=== PATIENT | male | born 1935 | race Asian ===

== ENCOUNTER 2017-11-15 01:00 | Inpatient (IN) | payer OTHER, MEDICARE ==
[2017-11-15] MEDS: ALBUTEROL 0.083% (NEB) 2.5 MG/3 ML AMP INH (01:30)
[2017-11-15] MEDS: IPRATROPIUM (NEB) 0.5 MG/2.5 ML AMP INH (01:31)
[2017-11-15 01:40] LABS: AADO2 Venous 54.3 mmHg; MODE ROOM AIR; MetHgb Venous 0.4 %; Site Left Radial; Venous COHb 0.4 %; Venous Fraction OxyHgb 89.9 %; Venous Oxygen Sat 90.6 mmHG (55.0-75.0); Venous Total Hemglobin 6.6 g/dl
[2017-11-15 02:31] LABS: ADD MAN DIFF? NO
[2017-11-15 02:34] LABS: WHITE BLOOD COUNT 9.5 10^3/ul (4.8-10.8)
[2017-11-15 02:34] LABS: ABNORMAL IP MESSAGE 1; EOSINOPHILS # 0.1 10^3/ul (0.0-0.5); EOSINOPHILS % 0.5 % (0.0-7.0); HEMATOCRIT 13.5 % (42.0-52.0); LYMPHOCYTES # 1.3 10^3/ul (0.8-2.9); LYMPHOCYTES % 13.3 % (15.0-51.0); MEAN CORPUSCULAR HEMOGLOBIN 31.8 pg (29.0-33.0); MEAN CORPUSCULAR HGB CONC 31.1 g/dl (32.0-37.0); MEAN CORPUSCULAR VOLUME 102.3 fl (82.0-101.0); MEAN PLATELET VOLUME 9.3 fl (7.4-10.4); MONOCYTE # 0.9 10^3/ul (0.3-0.9); MONOCYTES % 9.1 % (0.0-11.0); NEUTROPHIL # 7.2 10^3/ul (1.6-7.5); NEUTROPHILS % 76.4 % (39.0-77.0); NUCLEATED RED BLOOD CELLS # 0.1 10^3/ul (0.0-0.0); NUCLEATED RED BLOOD CELLS% 0.7 /100WBC (0.0-0.0); PLATELET COUNT 214 10^3/UL (140-415); POSITIVE DIFF @See below; RED BLOOD COUNT 1.32 10^6/ul (4.70-6.10); RED CELL DISTRIBUTION WIDTH 17.1 % (11.5-14.5)
[2017-11-15 02:43] LABS: HEMOGLOBIN 4.2 g/dl (14.0-18.0)
[2017-11-15 02:51] LABS: ANION GAP 15 (8-16); BLOOD UREA NITROGEN 50 mg/dl (7-20); CALCIUM 8.5 mg/dl (8.4-10.2); CARBON DIOXIDE 24 mmol/L (21-31); CHLORIDE 102 mmol/L (97-110); CREATININE 3.16 mg/dl (0.61-1.24); GLUCOSE 127 mg/dl (70-220); SODIUM 136 mmol/L (135-144)
[2017-11-15 02:55] LABS: INR 1.15; PROTIME 14.9 Sec (11.9-14.9); PT RATIO 1.2
[2017-11-15 02:56] LABS: PARTIAL THROMBOPLASTIN TIME 37.6 Sec (25.0-35.0)
[2017-11-15 03:02] LABS: B-TYPE NATRIURETIC PEPTIDE 12400 PG/ML (0-450); TROPONIN-I 0.011 ng/ml (0.000-0.120)
[2017-11-15] MEDS: ACETAMINOPHEN 500 MG TAB PO (03:07)
[2017-11-15] MEDS: CEFEPIME 2GM/50 ML (PMX) 50 ML IVPB (03:11)
[2017-11-15] MEDS: SOD CHLORIDE 0.9% 500 ML IV (04:00)
[2017-11-15] MEDS ORDERED: ALBUTEROL/IPRATROPIUM (NEB) 3 ML AMP NEB (04:30)
[2017-11-15] MEDS ORDERED: ACETAMINOPHEN 650MG/20.3ML CUP PO (04:30)
[2017-11-15] MEDS: VANCOMYCIN 1 GM (PMX) 250 ML IVPB (04:41)
[2017-11-15] MEDS: morphine 4 MG/ML VIAL IV (05:41)
[2017-11-15] MEDS: ONDANSETRON 4 MG INJ IV (05:41)
[2017-11-15] MEDS: PANTOPRAZOLE 40 MG INJ IV ×2 (05:43→18:32)
[2017-11-15] MEDS: SOD CHLORIDE 0.9% 250 ML IV (08:43)
[2017-11-15 08:57] LABS: HAAIG REFLEX REFLEX FILED
[2017-11-15 09:41] LABS: HEPATITIS B SURFACE ANTIGEN NEGATIVE (NEGATIVE)
[2017-11-15 09:59] LABS: HEPATITIS B CORE ANTIBODY NEGATIVE (NEGATIVE); HEPATITIS C VIRAL ANTIBODY NEGATIVE (NEGATIVE)
[2017-11-15] MEDS ORDERED: ALBUMIN HUMAN 25% 100 ML (12:48)
[2017-11-15] MEDS: ALBUMIN HUMAN 25% 100 ML IV (12:57)
[2017-11-15 13:35] LABS: ADD MAN DIFF? NO
[2017-11-15] MEDS: HEPARIN 1000 UNITS/ML 10 ML INJ CATHETER (13:36)
[2017-11-15 13:37] LABS: WHITE BLOOD COUNT 8.6 10^3/ul (4.8-10.8)
[2017-11-15 13:37] LABS: BASOPHILS % 0.4 % (0.0-2.0); EOSINOPHILS % 0.2 % (0.0-7.0); HEMATOCRIT 26.8 % (42.0-52.0); HEMOGLOBIN 8.7 g/dl (14.0-18.0); LYMPHOCYTES % 11.3 % (15.0-51.0); MEAN CORPUSCULAR HEMOGLOBIN 28.5 pg (29.0-33.0); MEAN CORPUSCULAR HGB CONC 32.5 g/dl (32.0-37.0); MEAN CORPUSCULAR VOLUME 87.9 fl (82.0-101.0); MEAN PLATELET VOLUME 9.2 fl (7.4-10.4); MONOCYTES % 11.7 % (0.0-11.0); NEUTROPHIL # 6.5 10^3/ul (1.6-7.5); NEUTROPHILS % 75.5 % (39.0-77.0); NUCLEATED RED BLOOD CELLS # 0.1 10^3/ul (0.0-0.0); NUCLEATED RED BLOOD CELLS% 1.4 /100WBC (0.0-0.0); POSITIVE DIFF @See below; RED BLOOD COUNT 3.05 10^6/ul (4.70-6.10); RED CELL DISTRIBUTION WIDTH 17.5 % (11.5-14.5)
[2017-11-15 13:47] LABS: PLATELET COUNT 114 10^3/UL (140-415)
[2017-11-15 13:56] LABS: HEMOGLOBIN A1C 5.8 % (0-5.9)
[2017-11-15] MEDS: morphine 2 MG INJ IV (14:29)
[2017-11-15] MEDS ORDERED: PROPOFOL 100 ML (16:20)
[2017-11-15] MEDS ORDERED: NORepinephrine 8MG/250 ML (PMX 250 ML (16:34)
[2017-11-15] MEDS: NORepinephrine 8MG/250 ML (PMX 250 ML IV (16:48)
[2017-11-15] MEDS: PROPOFOL 100 ML IV (16:48)
[2017-11-15 17:55] LABS: AADO2 Arterial 206.4 mmHg (7.0-24.0); Arterial Base Excess 2.7 mmol/L (-3.0-3); Arterial Blood Gas Oxygen Sat 99.4 mmHG (95.0-100.0); Arterial COHb 0 % (0.0-3.0); Arterial Fraction of Oxyhgb 98.9 % (93.0-99.0); Arterial HCO3 25.6 mmol/L (22.0-26.0); Arterial MetHb 0.5 % (0.0-1.5); Arterial Total Hemglobin 8.3 g/dl (12.0-18.0); Arterial pCO2 32.7 mmhg (35-45); MODE VENT - AC; Site LB
[2017-11-15 22:45] LABS: ADD MAN DIFF? NO
[2017-11-15 22:46] LABS: BASOPHIL # 0.1 10^3/ul (0.0-0.1); BASOPHILS % 0.4 % (0.0-2.0); EOSINOPHILS # 0.1 10^3/ul (0.0-0.5); EOSINOPHILS % 0.7 % (0.0-7.0); HEMATOCRIT 21.7 % (42.0-52.0); HEMOGLOBIN 7.3 g/dl (14.0-18.0); LYMPHOCYTES # 1.5 10^3/ul (0.8-2.9); LYMPHOCYTES % 13.1 % (15.0-51.0); MEAN CORPUSCULAR HEMOGLOBIN 29.9 pg (29.0-33.0); MEAN CORPUSCULAR HGB CONC 33.6 g/dl (32.0-37.0); MEAN CORPUSCULAR VOLUME 88.9 fl (82.0-101.0); MEAN PLATELET VOLUME 9.4 fl (7.4-10.4); MONOCYTE # 1.5 10^3/ul (0.3-0.9); MONOCYTES % 12.5 % (0.0-11.0); NEUTROPHIL # 8.5 10^3/ul (1.6-7.5); NEUTROPHILS % 72.6 % (39.0-77.0); NUCLEATED RED BLOOD CELLS # 0.4 10^3/ul (0.0-0.0); NUCLEATED RED BLOOD CELLS% 3.3 /100WBC (0.0-0.0); PLATELET COUNT 144 10^3/UL (140-415); RED BLOOD COUNT 2.44 10^6/ul (4.70-6.10); RED CELL DISTRIBUTION WIDTH 18.4 % (11.5-14.5)
[2017-11-15 22:46] LABS: WHITE BLOOD COUNT 11.7 10^3/ul (4.8-10.8)
[2017-11-16] MEDS: PROPOFOL 100 ML IV ×4 (00:17→20:21)
[2017-11-16 03:06] LABS: IMMEDIATE SPIN CROSSMATCH 1 4
[2017-11-16] MEDS: PANTOPRAZOLE 40 MG INJ IV ×2 (05:00→17:25)
[2017-11-16] MEDS: NORepinephrine 8MG/250 ML (PMX 250 ML IV ×2 (05:04→16:43)
[2017-11-16 06:52] LABS: ADD MAN DIFF? NO
[2017-11-16 06:54] LABS: WHITE BLOOD COUNT 11.3 10^3/ul (4.8-10.8)
[2017-11-16 06:54] LABS: BASOPHIL # 0.1 10^3/ul (0.0-0.1); BASOPHILS % 0.7 % (0.0-2.0); EOSINOPHILS # 0.1 10^3/ul (0.0-0.5); EOSINOPHILS % 0.9 % (0.0-7.0); HEMATOCRIT 24.7 % (42.0-52.0); HEMOGLOBIN 8.1 g/dl (14.0-18.0); LYMPHOCYTES # 1.5 10^3/ul (0.8-2.9); LYMPHOCYTES % 13.1 % (15.0-51.0); MEAN CORPUSCULAR HGB CONC 32.8 g/dl (32.0-37.0); MEAN CORPUSCULAR VOLUME 88.5 fl (82.0-101.0); MEAN PLATELET VOLUME 9.1 fl (7.4-10.4); MONOCYTE # 1.5 10^3/ul (0.3-0.9); MONOCYTES % 13.2 % (0.0-11.0); NEUTROPHIL # 8.1 10^3/ul (1.6-7.5); NEUTROPHILS % 71.3 % (39.0-77.0); NUCLEATED RED BLOOD CELLS # 0.6 10^3/ul (0.0-0.0); NUCLEATED RED BLOOD CELLS% 5.7 /100WBC (0.0-0.0); PLATELET COUNT 139 10^3/UL (140-415); RED BLOOD COUNT 2.79 10^6/ul (4.70-6.10); RED CELL DISTRIBUTION WIDTH 18.5 % (11.5-14.5)
[2017-11-16 07:27] LABS: ANION GAP 15 (8-16); BLOOD UREA NITROGEN 62 mg/dl (7-20); CALCIUM 8.2 mg/dl (8.4-10.2); CARBON DIOXIDE 24 mmol/L (21-31); CHLORIDE 103 mmol/L (97-110); CREATININE 2.69 mg/dl (0.61-1.24); GLUCOSE 142 mg/dl (70-220); POTASSIUM 3.6 mmol/L (3.5-5.1); SODIUM 138 mmol/L (135-144)
[2017-11-16] MEDS: LIDOCAINE 1% (MPF) 5 ML VIAL ×2 (10:44)
[2017-11-16 13:50] LABS: Allen Test ACCEPTAB
[2017-11-16] MEDS: ALBUMIN HUMAN 25% 100 ML IV (16:20)
[2017-11-16] MEDS: HEPARIN 1000 UNITS/ML 10 ML INJ CATHETER (18:00)
[2017-11-17] MEDS: NORepinephrine 8MG/250 ML (PMX 250 ML IV ×2 (04:23→20:14)
[2017-11-17] MEDS: PANTOPRAZOLE 40 MG INJ IV (05:03)
[2017-11-17] MEDS: PROPOFOL 100 ML IV (05:03)
[2017-11-17 05:13] LABS: ADD MAN DIFF? NO
[2017-11-17 05:21] LABS: BASOPHIL # 0.1 10^3/ul (0.0-0.1); BASOPHILS % 0.5 % (0.0-2.0); EOSINOPHILS # 0.1 10^3/ul (0.0-0.5); EOSINOPHILS % 0.7 % (0.0-7.0); HEMOGLOBIN 7.9 g/dl (14.0-18.0); LYMPHOCYTES # 1.1 10^3/ul (0.8-2.9); MEAN CORPUSCULAR HEMOGLOBIN 30.2 pg (29.0-33.0); MEAN CORPUSCULAR HGB CONC 32.9 g/dl (32.0-37.0); MEAN CORPUSCULAR VOLUME 91.6 fl (82.0-101.0); MEAN PLATELET VOLUME 9.7 fl (7.4-10.4); MONOCYTE # 1.2 10^3/ul (0.3-0.9); MONOCYTES % 11.4 % (0.0-11.0); NEUTROPHIL # 7.7 10^3/ul (1.6-7.5); NEUTROPHILS % 75.5 % (39.0-77.0); NUCLEATED RED BLOOD CELLS # 0.4 10^3/ul (0.0-0.0); NUCLEATED RED BLOOD CELLS% 3.9 /100WBC (0.0-0.0); PLATELET COUNT 141 10^3/UL (140-415); RED BLOOD COUNT 2.62 10^6/ul (4.70-6.10)
[2017-11-17 05:21] LABS: WHITE BLOOD COUNT 10.2 10^3/ul (4.8-10.8)
[2017-11-17 06:31] LABS: ANION GAP 15 (8-16); BLOOD UREA NITROGEN 61 mg/dl (7-20); CALCIUM 8.5 mg/dl (8.4-10.2); CARBON DIOXIDE 23 mmol/L (21-31); CHLORIDE 104 mmol/L (97-110); CREATININE 3.04 mg/dl (0.61-1.24); GLUCOSE 136 mg/dl (70-220); POTASSIUM 3.6 mmol/L (3.5-5.1); SODIUM 138 mmol/L (135-144)
[2017-11-17] MEDS: morphine 2 MG INJ IV ×2 (12:33→19:53)
[2017-11-17] MEDS: CEPASTAT LOZENGE MT (12:33)
[2017-11-17] MEDS: PANTOPRAZOLE (EC) 40 MG TAB PO (17:06)
[2017-11-17] MEDS: HYDROCODONE/APAP (5/325) TAB PO (20:49)
[2017-11-17] MEDS: ZOLPIDEM 5 MG TAB PO (23:00)
[2017-11-17] MEDS: ONDANSETRON 4 MG INJ IV (23:44)
[2017-11-18 05:04] LABS: ADD MAN DIFF? NO
[2017-11-18 05:08] LABS: ABNORMAL IP MESSAGE 1; BASOPHILS % 0.1 % (0.0-2.0); EOSINOPHILS # 0.1 10^3/ul (0.0-0.5); EOSINOPHILS % 0.6 % (0.0-7.0); HEMATOCRIT 18.6 % (42.0-52.0); LYMPHOCYTES # 0.8 10^3/ul (0.8-2.9); LYMPHOCYTES % 8.9 % (15.0-51.0); MEAN CORPUSCULAR HEMOGLOBIN 30.8 pg (29.0-33.0); MEAN CORPUSCULAR HGB CONC 32.3 g/dl (32.0-37.0); MEAN CORPUSCULAR VOLUME 95.4 fl (82.0-101.0); MEAN PLATELET VOLUME 9.6 fl (7.4-10.4); MONOCYTE # 0.8 10^3/ul (0.3-0.9); MONOCYTES % 9.3 % (0.0-11.0); NEUTROPHIL # 6.7 10^3/ul (1.6-7.5); NEUTROPHILS % 80.4 % (39.0-77.0); NUCLEATED RED BLOOD CELLS # 0.1 10^3/ul (0.0-0.0); NUCLEATED RED BLOOD CELLS% 1.5 /100WBC (0.0-0.0); PLATELET COUNT 104 10^3/UL (140-415); POSITIVE DIFF @See below; RED BLOOD COUNT 1.95 10^6/ul (4.70-6.10); RED CELL DISTRIBUTION WIDTH 18.8 % (11.5-14.5)
[2017-11-18 05:08] LABS: WHITE BLOOD COUNT 8.4 10^3/ul (4.8-10.8)
[2017-11-18] MEDS: PANTOPRAZOLE (EC) 40 MG TAB PO ×2 (05:08→17:02)
[2017-11-18 05:43] LABS: ANION GAP 16 (8-16); BLOOD UREA NITROGEN 90 mg/dl (7-20); CALCIUM 8.8 mg/dl (8.4-10.2); CARBON DIOXIDE 24 mmol/L (21-31); CHLORIDE 104 mmol/L (97-110); CREATININE 3.76 mg/dl (0.61-1.24); GLUCOSE 134 mg/dl (70-220); SODIUM 140 mmol/L (135-144)
[2017-11-18] MEDS: ALBUTEROL/IPRATROPIUM (NEB) 3 ML AMP HHN ×3 (08:45→19:31)
[2017-11-18] MEDS: morphine 2 MG INJ IV (08:53)
[2017-11-18] MEDS: ALBUMIN HUMAN 25% 100 ML IV (10:38)
[2017-11-18] MEDS: HEPARIN 1000 UNITS/ML 10 ML INJ CATHETER (13:19)
[2017-11-18] MEDS ORDERED: ZOLPIDEM 5 MG TAB PO (20:00)
[2017-11-18] MEDS: HYDROCODONE/APAP (5/325) TAB PO (20:19)
[2017-11-18] MEDS: ZOLPIDEM 5 MG TAB PO (23:38)
[2017-11-19] MEDS: ALBUTEROL/IPRATROPIUM (NEB) 3 ML AMP HHN ×4 (01:43→19:46)
[2017-11-19] MEDS: PANTOPRAZOLE (EC) 40 MG TAB PO ×2 (06:32→18:27)
[2017-11-19 07:06] LABS: ANION GAP 14 (8-16); BLOOD UREA NITROGEN 70 mg/dl (7-20); CALCIUM 8.4 mg/dl (8.4-10.2); CARBON DIOXIDE 27 mmol/L (21-31); CHLORIDE 100 mmol/L (97-110); CREATININE 2.56 mg/dl (0.61-1.24); GLUCOSE 109 mg/dl (70-220); POTASSIUM 3.9 mmol/L (3.5-5.1); SODIUM 137 mmol/L (135-144)
[2017-11-19 10:44] LABS: WHITE BLOOD COUNT 5.6 10^3/ul (4.8-10.8)
[2017-11-19 10:44] LABS: ABNORMAL IP MESSAGE 1; HEMATOCRIT 19.5 % (42.0-52.0); MEAN CORPUSCULAR HGB CONC 33.3 g/dl (32.0-37.0); MEAN CORPUSCULAR VOLUME 96.1 fl (82.0-101.0); MEAN PLATELET VOLUME 10.2 fl (7.4-10.4); NUCLEATED RED BLOOD CELLS% 1.3 /100WBC (0.0-0.0); PLATELET COUNT 75 10^3/UL (140-415); POSITIVE DIFF @See below; RED BLOOD COUNT 2.03 10^6/ul (4.70-6.10); RED CELL DISTRIBUTION WIDTH 16.9 % (11.5-14.5)
[2017-11-19 10:56] LABS: ADD MAN DIFF? YES; HEMOGLOBIN 6.5 g/dl (14.0-18.0)
[2017-11-19 11:15] LABS: ANISOCYTOSIS 1+ (0-0); BAND NEUTROPHILS #M 0.1 10^3/ul (0.0-0.6); BAND NEUTROPHILS % (M) 2 % (0-4); ERYTHROBLAST% (NRBC) (M) 1 % (0-0); LYMPHOCYTES #M 0.5 10^3/ul (0.8-2.9); LYMPHOCYTES % (M) 9 % (15-51); MONOCYTES % (M) 1 % (0-11); PLATELET ESTIMATE DECREASED; SEG NEUT #M 4.9 10^3/ul (1.6-7.5); SEGMENTED NEUTROPHILS (M) % 88 % (39-77); SMUDGE%M 6 % (0-0)
[2017-11-19] MEDS: ONDANSETRON 4 MG INJ IV (14:08)
[2017-11-19] MEDS: HYDROCODONE/APAP (5/325) TAB PO (14:18)
[2017-11-19 18:02] LABS: HEMATOCRIT 19.8 % (42.0-52.0)
[2017-11-19 18:16] LABS: HEMOGLOBIN 6.7 g/dl (14.0-18.0)
[2017-11-19] MEDS: morphine 2 MG INJ IV (20:03)
[2017-11-19] MEDS: DIPHENHYDRAMINE 50 MG INJ IV (22:08)
[2017-11-20] MEDS: ALBUTEROL/IPRATROPIUM (NEB) 3 ML AMP HHN ×4 (01:17→20:07)
[2017-11-20] MEDS: SOD CHLORIDE 0.9% 1,000 ML IV (03:08)
[2017-11-20] MEDS: LORAZEPAM 2 MG INJ IV (03:08)
[2017-11-20 05:26] LABS: ADD MAN DIFF? NO
[2017-11-20 05:29] LABS: BASOPHILS % 0.3 % (0.0-2.0); EOSINOPHILS # 0.1 10^3/ul (0.0-0.5); HEMATOCRIT 24.7 % (42.0-52.0); HEMOGLOBIN 8.3 g/dl (14.0-18.0); LYMPHOCYTES # 0.7 10^3/ul (0.8-2.9); LYMPHOCYTES % 12.4 % (15.0-51.0); MEAN CORPUSCULAR HEMOGLOBIN 31.3 pg (29.0-33.0); MEAN CORPUSCULAR HGB CONC 33.6 g/dl (32.0-37.0); MEAN CORPUSCULAR VOLUME 93.2 fl (82.0-101.0); MEAN PLATELET VOLUME 10.1 fl (7.4-10.4); MONOCYTE # 0.6 10^3/ul (0.3-0.9); MONOCYTES % 11.1 % (0.0-11.0); NEUTROPHIL # 4.3 10^3/ul (1.6-7.5); NEUTROPHILS % 74.3 % (39.0-77.0); NUCLEATED RED BLOOD CELLS # 0.1 10^3/ul (0.0-0.0); NUCLEATED RED BLOOD CELLS% 0.9 /100WBC (0.0-0.0); PLATELET COUNT 102 10^3/UL (140-415); RED BLOOD COUNT 2.65 10^6/ul (4.70-6.10); RED CELL DISTRIBUTION WIDTH 15.2 % (11.5-14.5)
[2017-11-20 05:29] LABS: WHITE BLOOD COUNT 5.8 10^3/ul (4.8-10.8)
[2017-11-20] MEDS: PANTOPRAZOLE (EC) 40 MG TAB PO ×2 (05:42→18:00)
[2017-11-20 05:57] LABS: CHOLESTEROL 55 mg/dl (100-200)
[2017-11-20 05:57] LABS: CHOL/HDL RATIO 3.4 RATIO; HDL CHOLESTEROL 16 mg/dl (31-75); LDL CHOLESTEROL,CALCULATED 6 mg/dl; TRIGLYCERIDES 167 mg/dl (0-149)
[2017-11-20 05:59] LABS: ANION GAP 14 (8-16); BLOOD UREA NITROGEN 98 mg/dl (7-20); CALCIUM 8.1 mg/dl (8.4-10.2); CARBON DIOXIDE 24 mmol/L (21-31); CHLORIDE 104 mmol/L (97-110); CREATININE 3.18 mg/dl (0.61-1.24); GLUCOSE 111 mg/dl (70-220); POTASSIUM 4.3 mmol/L (3.5-5.1); SODIUM 138 mmol/L (135-144)
[2017-11-20 06:10] LABS: TROPONIN-I 0.166 ng/ml (0.000-0.120)
[2017-11-20] MEDS ORDERED: EPINEPHrine 0.1 MG/ML SYG (07:00)
[2017-11-20] MEDS: morphine 2 MG INJ IV (07:22)
[2017-11-20] MEDS: ONDANSETRON 4 MG INJ IV (07:22)
[2017-11-20] MEDS: ALBUMIN HUMAN 25% 100 ML IV (08:02)
[2017-11-20 10:40] LABS: ADD UMIC YES; UR ASCORBIC ACID NEGATIVE (NEGATIVE); UR BACTERIA FEW /HPF (NONE SEEN); UR BILIRUBIN (Dip) NEGATIVE (NEGATIVE); UR BLOOD (Dip) 2+ mg/dL (NEGATIVE); UR BUDDING YEAST FEW /HPF (NONE SEEN); UR CLARITY CLEAR (CLEAR); UR COLOR COLORLESS (YELLOW); UR GLUCOSE (Dip) NEGATIVE (NEGATIVE); UR KETONES (Dip) NEGATIVE (NEGATIVE); UR LEUKOCYTE ESTERASE (Dip) 2+ Leu/ul (NEGATIVE); UR NITRITE (Dip) NEGATIVE (NEGATIVE); UR RBC 35 /HPF (0-5); UR SPECIFIC GRAVITY (Dip) 1.006 (1.003-1.030); UR TOTAL PROTEIN (Dip) NEGATIVE (NEGATIVE); UR UROBILINOGEN (Dip) NEGATIVE (NEGATIVE); UR WBC 56 /HPF (0-5)
[2017-11-20] MEDS: HEPARIN 1000 UNITS/ML 10 ML INJ CATHETER (10:55)
[2017-11-20] MEDS: ETOMIDATE 20 MG INJ (14:47)
[2017-11-20] MEDS ORDERED: PROPOFOL 100 ML (15:50)
[2017-11-20] MEDS ORDERED: hydrALAzine 20 MG INJ (15:58)
[2017-11-20] MEDS ORDERED: PHENYLephrine 10 MG INJ (16:01)
[2017-11-20] MEDS: IPRATROPIUM (NEB) 0.5 MG/2.5 ML AMP HHN (16:29)
[2017-11-20] MEDS: LEVALBUTEROL (NEB) 1.25 MG/0.5 ML AMP HHN (16:29)
[2017-11-20] MEDS ORDERED: NORepinephrine 8MG/250 ML (PMX 250 ML IV (17:30)
[2017-11-20 20:43] LABS: IMMEDIATE SPIN CROSSMATCH 1 6
[2017-11-20 21:29] LABS: ADD MAN DIFF? NO
[2017-11-20 21:30] LABS: WHITE BLOOD COUNT 7.6 10^3/ul (4.8-10.8)
[2017-11-20 21:30] LABS: ABNORMAL IP MESSAGE 1; BASOPHILS % 0.5 % (0.0-2.0); EOSINOPHILS # 0.1 10^3/ul (0.0-0.5); EOSINOPHILS % 0.7 % (0.0-7.0); HEMATOCRIT 21.2 % (42.0-52.0); IMMATURE GRANS #M 0.06 10^3/ul; IMMATURE GRANS % (M) 0.8 %; LYMPHOCYTES # 0.9 10^3/ul (0.8-2.9); LYMPHOCYTES % 11.2 % (15.0-51.0); MEAN CORPUSCULAR HEMOGLOBIN 30.2 pg (29.0-33.0); MEAN CORPUSCULAR HGB CONC 32.1 g/dl (32.0-37.0); MEAN CORPUSCULAR VOLUME 94.2 fl (82.0-101.0); MEAN PLATELET VOLUME 9.6 fl (7.4-10.4); NEUTROPHIL # 5.6 10^3/ul (1.6-7.5); NEUTROPHILS % 73.8 % (39.0-77.0); NUCLEATED RED BLOOD CELLS # 0.1 10^3/ul (0.0-0.0); NUCLEATED RED BLOOD CELLS% 0.7 /100WBC (0.0-0.0); PLATELET COUNT 121 10^3/UL (140-415); POSITIVE DIFF @See below; RED BLOOD COUNT 2.25 10^6/ul (4.70-6.10); RED CELL DISTRIBUTION WIDTH 17.8 % (11.5-14.5)
[2017-11-20 22:02] LABS: HEMOGLOBIN 6.8 g/dl (14.0-18.0)
[2017-11-21] MEDS: LORAZEPAM 2 MG INJ IV ×3 (00:14→20:43)
[2017-11-21] MEDS: BUMETANIDE 1 MG INJ IV (00:42)
[2017-11-21] MEDS: ALBUTEROL/IPRATROPIUM (NEB) 3 ML AMP HHN ×5 (01:05→20:17)
[2017-11-21 01:07] LABS: HEMATOCRIT 26.6 % (42.0-52.0); HEMOGLOBIN 8.8 g/dl (14.0-18.0)
[2017-11-21 01:46] LABS: TROPONIN-I 0.162 ng/ml (0.000-0.120)
[2017-11-21] MEDS: SOD CHLORIDE 0.9% 1,000 ML IV (03:00)
[2017-11-21] MEDS: HALOPERIDOL 5 MG INJ IM (04:34)
[2017-11-21 04:42] LABS: AADO2 Arterial 123.7 mmHg (7.0-24.0); Allen Test ACCEPTAB; Arterial Base Excess -1.7 mmol/L (-3.0-3); Arterial Blood Gas Oxygen Sat 93.4 mmHG (95.0-100.0); Arterial COHb 0.2 % (0.0-3.0); Arterial Fraction of Oxyhgb 92.9 % (93.0-99.0); Arterial MetHb 0.3 % (0.0-1.5); Arterial Total Hemglobin 9.6 g/dl (12.0-18.0); Arterial pCO2 38.7 mmhg (35-45); MODE NASAL CANNULA; Site Left Radial
[2017-11-21 05:29] LABS: ADD MAN DIFF? NO
[2017-11-21] MEDS: PANTOPRAZOLE (EC) 40 MG TAB PO ×2 (05:32→17:24)
[2017-11-21 05:39] LABS: WHITE BLOOD COUNT 7.4 10^3/ul (4.8-10.8)
[2017-11-21 05:40] LABS: ABNORMAL IP MESSAGE 1; BASOPHILS % 0.4 % (0.0-2.0); EOSINOPHILS # 0.1 10^3/ul (0.0-0.5); EOSINOPHILS % 0.9 % (0.0-7.0); HEMATOCRIT 25.5 % (42.0-52.0); HEMOGLOBIN 8.5 g/dl (14.0-18.0); IMMATURE GRANS #M 0.05 10^3/ul; IMMATURE GRANS % (M) 0.7 %; LYMPHOCYTES # 0.5 10^3/ul (0.8-2.9); LYMPHOCYTES % 6.6 % (15.0-51.0); MEAN CORPUSCULAR HEMOGLOBIN 30.7 pg (29.0-33.0); MEAN CORPUSCULAR HGB CONC 33.3 g/dl (32.0-37.0); MEAN CORPUSCULAR VOLUME 92.1 fl (82.0-101.0); MEAN PLATELET VOLUME 9.9 fl (7.4-10.4); MONOCYTE # 0.9 10^3/ul (0.3-0.9); MONOCYTES % 12.7 % (0.0-11.0); NEUTROPHIL # 5.8 10^3/ul (1.6-7.5); NEUTROPHILS % 78.7 % (39.0-77.0); NUCLEATED RED BLOOD CELLS% 0.4 /100WBC (0.0-0.0); PLATELET COUNT 106 10^3/UL (140-415); POSITIVE DIFF @See below; RED BLOOD COUNT 2.77 10^6/ul (4.70-6.10); RED CELL DISTRIBUTION WIDTH 18.4 % (11.5-14.5)
[2017-11-21 05:59] LABS: ANION GAP 13 (8-16); BLOOD UREA NITROGEN 71 mg/dl (7-20); CALCIUM 8.5 mg/dl (8.4-10.2); CARBON DIOXIDE 25 mmol/L (21-31); CHLORIDE 107 mmol/L (97-110); GLUCOSE 116 mg/dl (70-220); MAGNESIUM 1.8 mg/dl (1.7-2.5); PHOSPHORUS 3.8 mg/dl (2.5-4.9); POTASSIUM 4.4 mmol/L (3.5-5.1); SODIUM 141 mmol/L (135-144)
[2017-11-22] MEDS: SOD CHLORIDE 0.9% 1,000 ML IV (02:08)
[2017-11-22] MEDS: ALBUTEROL/IPRATROPIUM (NEB) 3 ML AMP HHN ×3 (02:19→14:43)
[2017-11-22] MEDS: IODIXANOL LOCM 100 ML BTL (03:16)
[2017-11-22] MEDS: SOD CHLORIDE 0.9% 100 ML (03:16)
[2017-11-22] MEDS: IODIXANOL LOCM 50 ML BTL (03:17)
[2017-11-22 04:53] LABS: AADO2 Arterial 123.5 mmHg (7.0-24.0); Allen Test ACCEPTAB; Arterial Base Excess -7.1 mmol/L (-3.0-3); Arterial Blood Gas Oxygen Sat 96.8 mmHG (95.0-100.0); Arterial COHb 0.3 % (0.0-3.0); Arterial Fraction of Oxyhgb 96.1 % (93.0-99.0); Arterial MetHb 0.4 % (0.0-1.5); Arterial Total Hemglobin 10.9 g/dl (12.0-18.0); Arterial pCO2 29.4 mmhg (35-45); MODE MASK - VENTI; Site Right Radial
[2017-11-22] MEDS: LORAZEPAM 2 MG INJ IV ×2 (04:53→15:55)
[2017-11-22] MEDS: HALOPERIDOL 5 MG INJ IM (04:53)
[2017-11-22 05:27] LABS: ADD MAN DIFF? NO
[2017-11-22 05:29] LABS: ABNORMAL IP MESSAGE 1; BASOPHILS % 0.3 % (0.0-2.0); EOSINOPHILS # 0.1 10^3/ul (0.0-0.5); EOSINOPHILS % 0.9 % (0.0-7.0); HEMATOCRIT 26.1 % (42.0-52.0); HEMOGLOBIN 8.5 g/dl (14.0-18.0); IMMATURE GRANS #M 0.04 10^3/ul; IMMATURE GRANS % (M) 0.6 %; LYMPHOCYTES # 0.5 10^3/ul (0.8-2.9); LYMPHOCYTES % 7.6 % (15.0-51.0); MEAN CORPUSCULAR HEMOGLOBIN 31.4 pg (29.0-33.0); MEAN CORPUSCULAR HGB CONC 32.6 g/dl (32.0-37.0); MEAN CORPUSCULAR VOLUME 96.3 fl (82.0-101.0); MEAN PLATELET VOLUME 9.3 fl (7.4-10.4); MONOCYTE # 0.8 10^3/ul (0.3-0.9); MONOCYTES % 10.9 % (0.0-11.0); NEUTROPHIL # 5.5 10^3/ul (1.6-7.5); NEUTROPHILS % 79.7 % (39.0-77.0); PLATELET COUNT 117 10^3/UL (140-415); POSITIVE DIFF @See below; RED BLOOD COUNT 2.71 10^6/ul (4.70-6.10); RED CELL DISTRIBUTION WIDTH 19.6 % (11.5-14.5)
[2017-11-22 05:43] LABS: LACTIC ACID 1.4 mmol/L (0.5-2.0)
[2017-11-22 05:44] LABS: ANION GAP 20 (8-16); BLOOD UREA NITROGEN 75 mg/dl (7-20); CALCIUM 9.5 mg/dl (8.4-10.2); CARBON DIOXIDE 20 mmol/L (21-31); CHLORIDE 109 mmol/L (97-110); CREATININE 3.41 mg/dl (0.61-1.24); GLUCOSE 79 mg/dl (70-220); POTASSIUM 4.6 mmol/L (3.5-5.1); SODIUM 144 mmol/L (135-144)
[2017-11-22] MEDS: PANTOPRAZOLE (EC) 40 MG TAB PO (06:00)
[2017-11-22] MEDS: ALBUMIN HUMAN 25% 100 ML IV (10:25)
[2017-11-22] MEDS: HEPARIN 1000 UNITS/ML 10 ML INJ CATHETER (12:58)
== END 2017-11-22 16:00 | disposition short-term general hospital (02) | DRG 208 ==
LOC: E/R 01:00 → ICU 03:52
PROC: 0W3P8ZZ Control Bleeding in Gastrointestinal Tract, Via Natural or Artificial Opening Endoscopic (ICD-10-PCS; 2017-11-20 13:30)
PROC: 5A1945Z Respiratory Ventilation, 24-96 Consecutive Hours (ICD-10-PCS; principal; 2017-11-20 14:00)
PROC: 0BH17EZ Insertion of Endotracheal Airway into Trachea, Via Natural or Artificial Opening (ICD-10-PCS; 2017-11-20 14:00)
PROC: 06HN33Z Insertion of Infusion Device into Left Femoral Vein, Percutaneous Approach (ICD-10-PCS; 2017-11-20 14:00)
PROC: B54CZZA Ultrasonography of Left Lower Extremity Veins, Guidance (ICD-10-PCS; 2017-11-20 14:00)
PROC: 30233N1 Transfusion of Nonautologous Red Blood Cells into Peripheral Vein, Percutaneous Approach (ICD-10-PCS; 2017-11-20 14:00)
PROC: 0W993ZZ Drainage of Right Pleural Cavity, Percutaneous Approach (ICD-10-PCS; 2017-11-20 14:00)
PROC: 5A1D70Z Performance of Urinary Filtration, Intermittent, Less than 6 Hours Per Day (ICD-10-PCS; 2017-11-20 14:00)
DX: J96.01 Acute respiratory failure with hypoxia (principal); N18.6 End stage renal disease; K31.82 Dieulafoy lesion (hemorrhagic) of stomach and duodenum; R57.8 Other shock; I71.01 Dissection of thoracic aorta; J98.59 Other diseases of mediastinum, not elsewhere classified; I21.A1 Myocardial infarction type 2; G93.40 Encephalopathy, unspecified; J90 Pleural effusion, not elsewhere classified; J98.19 Other pulmonary collapse; I42.9 Cardiomyopathy, unspecified; I12.0 Hypertensive chronic kidney disease with stage 5 chronic kidney disease or end stage renal disease; E44.0 Moderate protein-calorie malnutrition; E11.22 Type 2 diabetes mellitus with diabetic chronic kidney disease; E11.319 Type 2 diabetes mellitus with unspecified diabetic retinopathy without macular edema; D50.0 Iron deficiency anemia secondary to blood loss (chronic); I25.10 Atherosclerotic heart disease of native coronary artery without angina pectoris; I44.7 Left bundle-branch block, unspecified; R91.1 Solitary pulmonary nodule; R59.0 Localized enlarged lymph nodes; Z99.2 Dependence on renal dialysis; Z98.61 Coronary angioplasty status; Z68.20 Body mass index [BMI] 20.0-20.9, adult; Z86.718 Personal history of other venous thrombosis and embolism; Z86.11 Personal history of tuberculosis
CPT/HCPCS: 31500; 36415; 36430; 36600; 71045; 71250; 71260; 76942; 80048; 80061; 81001; 82803; 82962; 83036; 83605; 83735; 83880; 84100; 84484; 85014; 85018; 85025; 85610; 85730; 86704; 86709; 86803; 86850; 86900; 86901; 86920; 87040; 87070; 87081; 87102; 87116; 87340; 90935; 93005; 93306; 94002; 94003; 94640; 94660; 94664; 94770; 96374; 99291-25